=== PATIENT | female | born 1995 | race Caucasian/White ===

== ENCOUNTER 2023-10-27 12:56 | Outpatient (CLI) | payer OTHER | END 2023-10-27 13:34 | disposition home or self-care (01) | LOC: NST 12:56 | PROVIDERS: ATTEND Obstetrics & Gynecology Gynecology | DX: Z34.83 Encounter for supervision of other normal pregnancy, third trimester (principal) ==

== ENCOUNTER 2023-11-11 14:22 | Inpatient (IN) | payer OTHER ==
[~2023-11-11] VITALS: Ht 154.9 cm; Wt 56.2 kg
[2023-11-27] VITALS (8 sets, daily range): BP systolic 113–136; BP diastolic 73–87
[2023-11-27] MEDS ORDERED: RINGERS SOLUTION,LACTATED 1,000 ML IV SCH (06:00)
[2023-11-27] MEDS ORDERED: OBSTETRIX ONE CAPSUL PO (06:01)
[2023-11-27] MEDS ORDERED: OMEGA 3 1,0001 EACH PO (06:02)
[2023-11-27] MEDS ORDERED: VITAMIN D310 MCG/1 M PO (06:02)
[2023-11-27] MEDS ORDERED: PROBIOTIC1 EAC4 PO (06:03)
[2023-11-27] MEDS ORDERED: EFFER-K 10 MEQ10 MEQ PO (06:03)
[2023-11-27 06:48] LABS: INR < 0.93; PARTIAL THROMBOPLASTIN TIME 26.8 SECONDS (22.0-34.0); PROTHROMBIN TIME 10.1 SECONDS (9.0-11.5)
[2023-11-27 06:49] LABS: HEMATOCRIT 35.7 % (36.0-45.00); HEMOGLOBIN 12.5 g/dL (12.0-15.00); MEAN CELL VOLUME 87.3 fL (80.00-100.00); MEAN CORPUSCULAR HEMOGLOBIN 30.5 pg (27.00-32.0); MEAN CORPUSCULAR HGB CONC 34.9 g/dl (32.0-36.0); PLATELET COUNT 209 K/uL (150-450); RED BLOOD COUNT 4.09 M/uL (4.00-6.00); RED CELL DISTRIBUTION WIDTH 13.6 % (11.5-14.5)
[2023-11-27 06:55] LABS: ALBUMIN 2.9 gm/dL (3.4-5.0); BILIRUBIN TOTAL 0.45 mg/dL (0.3-1.2); CALCIUM 9.1 mg/dL (8.5-10.1); CREATININE SERUM 0.73 mg/dL (0.55-1.02); GFR 93.61; GLOBULINA 3.8 G/DL (2.4-3.5); POTASSIUM 3.9 mEq/L (3.5-5.1); TOTAL PROTEIN 6.7 gm/dL (6.4-8.2)
[2023-11-27] MEDS ORDERED: OXYTOCIN 500 ML IV ONE (08:15)
[2023-11-27] MEDS ORDERED: MORPHINE SULFATE 4 MG/ML CARTRIDGE IV PRN (10:15)
[2023-11-27] MEDS ORDERED: OXYTOCIN 20 UNITS/1000ML RL PIGGYBAG IV ONE ×2 (15:30→20:15)
[2023-11-27] MEDS ORDERED: ERYTHROMYCIN BASE OPHT 1GM EACH TUBE OP ONE ×2 (15:30→20:00)
[2023-11-27] MEDS ORDERED: LIDOCAINE HCL 1% 10ML VIAL ONE (15:30)
[2023-11-27] MEDS ORDERED: CHLORHEXIDINE GLUCONATE 120 ML BOTTLE TOP ONE ×2 (15:30→20:00)
[2023-11-27] MEDS ORDERED: OXYTOCIN 10 UNITS/ML VIAL ONE (18:49)
[2023-11-27] MEDS ORDERED: DOCUSATE SODIUM 100MG CAP PO SCH (19:15)
[2023-11-27] MEDS ORDERED: IBUprofen 400 MG TABLET PO PRN (19:15)
[2023-11-27] MEDS ORDERED: OxyCODONE HCL/APAP UD (PERCOCET) PO PRN (19:15)
[2023-11-27] MEDS ORDERED: OXYTOCIN 1,000 ML IV SCH (19:15)
[2023-11-27] MEDS ORDERED: METHYLERGONOVINE MALEATE 0.2 MG/ML AMPUL ONE (19:29)
[2023-11-27] MEDS ORDERED: LIDOCAINE HCL 1% 10ML VIAL IJ ONE (20:00)
[2023-11-27] MEDS ORDERED: METHYLERGONOVINE MALEATE 0.2 MG TABLET PO ONE (20:00)
[2023-11-28] MEDS ORDERED: OXYTOCIN 10 UNITS/ML VIAL ONE (02:06)
[2023-11-28 09:21] VITALS: BP 119/81
[2023-11-28 16:00] VITALS: BP 103/66
[2023-11-29 00:22] VITALS: BP 118/72
[2023-11-29 08:29] VITALS: BP 116/76
== END 2023-11-29 11:52 | disposition home or self-care (01) | DRG 768 ==
LOC: OB/GYN 11-25 14:30 → LDR 11-27 05:51 → OB/GYN 11-27 19:16
PROVIDERS: Obstetrics & Gynecology Maternal & Fetal Medicine; ADMIT Obstetrics & Gynecology; ATTEND Obstetrics & Gynecology
PROC: 10D07Z6 Extraction of Products of Conception, Vacuum, Via Natural or Artificial Opening (ICD-10-PCS; principal; 2023-11-27)
PROC: 0DQR0ZZ Repair Anal Sphincter, Open Approach (ICD-10-PCS; 2023-11-27)
PROC: 0W8NXZZ Division of Female Perineum, External Approach (ICD-10-PCS; 2023-11-27)
PROC: 4A1HXCZ Monitoring of Products of Conception, Cardiac Rate, External Approach (ICD-10-PCS; 2023-11-27)
DX: O70.21 Third degree perineal laceration during delivery, IIIa (principal); Z37.0 Single live birth; O66.5 Attempted application of vacuum extractor and forceps; Z3A.40 40 weeks gestation of pregnancy; Z20.822 Contact with and (suspected) exposure to COVID-19

== ENCOUNTER → 2023-11-24 | Outpatient (CLI) | payer OTHER | END | disposition home or self-care (01) | LOC: NST 14:52 | PROVIDERS: ATTEND Obstetrics & Gynecology Maternal & Fetal Medicine | DX: Z34.83 Encounter for supervision of other normal pregnancy, third trimester (principal) ==